=== PATIENT | male | born 2000 | race Hispanic/Latino ===

== ENCOUNTER 2018-12-13 22:07 | Emergency (ER) | payer MEDICAID, OTHER ==
[2018-12-14] MEDS ORDERED: LIDOCAINE HCL 1% 20 ML VIAL ONE (00:09)
== END 2018-12-14 00:57 | disposition home or self-care (01) ==
LOC: EDH 22:07
DX: S01.111A Laceration without foreign body of right eyelid and periocular area, initial encounter (principal); S80.212A Abrasion, left knee, initial encounter; J45.909 Unspecified asthma, uncomplicated; Y04.0XXA Assault by unarmed brawl or fight, initial encounter; Y93.89 Activity, other specified; Y92.89 Other specified places as the place of occurrence of the external cause; Y99.8 Other external cause status
CPT/HCPCS: 12011; 70450; 70486; 72125

== ENCOUNTER 2018-12-22 14:50 | Emergency (ER) | payer OTHER | END 2018-12-22 15:10 | disposition home or self-care (01) | LOC: EDH 14:50 | DX: S01.111D Laceration without foreign body of right eyelid and periocular area, subsequent encounter (principal); J45.909 Unspecified asthma, uncomplicated; X58.XXXD Exposure to other specified factors, subsequent encounter | CPT/HCPCS: 99281 ==

== ENCOUNTER 2021-04-14 11:51 | Emergency (ER) | payer OTHER ==
[~2021-04-14] VITALS: Ht 167.6 cm; Wt 85.3 kg
[2021-04-14 11:52] VITALS: BP 114/70
[2021-04-14 11:53] VITALS: BP 114/70
== END 2021-04-14 13:58 | disposition home or self-care (01) ==
LOC: EDH 11:51
DX: S60.221A Contusion of right hand, initial encounter (principal); M79.89 Other specified soft tissue disorders; W22.01XA Walked into wall, initial encounter; Y93.89 Activity, other specified; Y92.89 Other specified places as the place of occurrence of the external cause; Y99.8 Other external cause status
CPT/HCPCS: 73130

== ENCOUNTER 2021-12-08 12:07 | Emergency (ER) | payer OTHER ==
[~2021-12-08] VITALS: Ht 172.7 cm; Wt 83.9 kg
[2021-12-08] MEDS ORDERED: TETANUS/DIPHTHERIA TOXOID [ADULT] 0.5 ML VIAL IM ONE (12:30)
[2021-12-08] MEDS ORDERED: CEPHALEXIN 500 MG CAPSULE PO ONE (12:30)
[2021-12-08] MEDS ORDERED: HYDROCODONE/ACETAMINOPHEN 10/325 MG TAB PO ONE (12:30)
[2021-12-08 12:45] VITALS: BP 130/92
[2021-12-08] MEDS ORDERED: CEPH500B PO (13:51)
[2021-12-08] MEDS ORDERED: IBUP-2070 PO (13:51)
== END 2021-12-08 13:59 | disposition home or self-care (01) ==
LOC: EDH 12:07
DX: S61.411A Laceration without foreign body of right hand, initial encounter (principal); Z79.1 Long term (current) use of non-steroidal anti-inflammatories (NSAID); X58.XXXA Exposure to other specified factors, initial encounter; Y93.89 Activity, other specified; Y92.89 Other specified places as the place of occurrence of the external cause; Y99.8 Other external cause status
CPT/HCPCS: 12001; 73130; 90471; 90714

== ENCOUNTER 2022-08-31 20:31 | Emergency (ER) | payer OTHER ==
[~2022-08-31] VITALS: Ht 167.6 cm; Wt 87.1 kg
[~2022-08-31 20:31] MED LIST: CEPH500B PO; IBUP-2070 PO
[2022-09-01 02:16] VITALS: BP 131/78
[2022-09-01] MEDS ORDERED: IBUP-2077 PO (02:23)
== END 2022-09-01 02:31 | disposition home or self-care (01) ==
LOC: EDH 20:31
DX: S99.912A Unspecified injury of left ankle, initial encounter (principal); X50.1XXA Overexertion from prolonged static or awkward postures, initial encounter; Y93.89 Activity, other specified; Y92.89 Other specified places as the place of occurrence of the external cause; Y99.8 Other external cause status
CPT/HCPCS: 73600

== ENCOUNTER 2023-05-09 12:17 | Emergency (ER) | payer OTHER ==
[~2023-05-09] VITALS: Ht 167.6 cm; Wt 87.5 kg
[~2023-05-09 12:17] MED LIST changes: +IBUP-2077 PO
[2023-05-09 12:20] VITALS: BP 122/72; PULSE 88; RESP 18
[2023-05-09] MEDS ORDERED: BACITRACIN 1 EACH PACKET TP ONE (14:46)
[2023-05-09] MEDS ORDERED: TETANUS/DIPHTHERIA TOXOID [ADULT] 0.5 ML VIAL IM ONE (14:47)
== END 2023-05-09 15:12 | disposition home or self-care (01) ==
LOC: EDH 12:17
DX: S61.216A Laceration without foreign body of right little finger without damage to nail, initial encounter (principal); Z79.899 Other long term (current) drug therapy; X58.XXXA Exposure to other specified factors, initial encounter; Y93.89 Activity, other specified; Y92.89 Other specified places as the place of occurrence of the external cause; Y99.8 Other external cause status
CPT/HCPCS: 12001; 90714

== ENCOUNTER 2023-05-12 19:14 | Emergency (ER) | payer OTHER | END 2023-05-12 19:31 | disposition left against medical advice (07) | LOC: EDH 19:14 | DX: R68.89 Other general symptoms and signs (principal); Z53.21 Procedure and treatment not carried out due to patient leaving prior to being seen by health care provider ==

== ENCOUNTER 2024-12-10 12:04 | Emergency (ER) | payer SELFPAY ==
[~2024-12-10] VITALS: Ht 177.8 cm; Wt 93.4 kg
[2024-12-10 12:14] VITALS: O2SAT 96
[2024-12-10 12:16] VITALS: BP 140/92; PULSE 85; RESP 16; TEMP 98.2
--- NOTE | 2024-12-10 12:24 | EKG ---
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
[2024-12-10 12:42] LABS: BASOPHILS # (AUTO) 0.04 K/uL (0.00-0.20); BASOPHILS % (AUTO) 0.4 % (0.0-5.0); EOSINOPHILS # (AUTO) 0.27 K/uL (0.00-0.70); HEMATOCRIT 53.1 % (42-54); IMMATURE GRANULOCYTE ABSOLUTE 0.03 K/uL (0-1); LYMPHOCYTES # (AUTO) 1.8 K/uL (1.0-4.8); LYMPHOCYTES % (AUTO) 20.4 % (21.0-51.0); MEAN CORPUSCULAR HEMOGLOBIN 31.6 pg (27.0-33.0); MEAN CORPUSCULAR HGB CONC 33.7 g/dL (32.0-36.0); MEAN CORPUSCULAR VOLUME 93.7 fL (79-99); MONOCYTES # (AUTO) 0.7 K/uL (0.1-1.0); MONOCYTES % (AUTO) 7.9 % (3.0-13.0); NEUTROPHILS # (AUTO) 6.1 K/uL (1.8-7.7); PLATELET COUNT (AUTO) 239 K/uL (130-400); RED BLOOD CELL COUNT(AUTO) 5.67 MIL/uL (4.50-6.20); RED CELL DISTRIBUTION WIDTH 13.3 % (11.0-15.5); WHITE BLOOD COUNT (AUTO) 8.9 K/uL (4.8-10.8)
[2024-12-10 12:50] LABS: POTASSIUM 3.8 mmol/L (3.5-5.1)
[2024-12-10 12:57] LABS: ALBUMIN 3.9 g/dL (3.5-5.0); BILIRUBIN,TOTAL 0.6 mg/dL (0.2-1.0); TOTAL PROTEIN, SERUM 7.7 g/dL (6.0-8.3)
--- NOTE | 2024-12-10 14:00 | NUR ---
PT CALLED OUT X3 WITH NO ANSWER. SEARCHED ER LOBBY, ER LOBBY RESTROOM, PARKING LOT. ER PROVIDER CINDY PEÑA MADE AWARE.
--- NOTE | 2024-12-10 14:18 | ERN ---
General Chief Complaint: Rapid Heart Rate Stated Complaint: CHEST PAIN Time Seen by MD: 12:04 Time Seen by Midlevel: 12:04 Source: patient History of Present Illness Initial Comments Patient is a 24-year-old male presenting to the emergency department for evaluation of chest pain and shortness of breath. Patient reports cocaine use prior to arrival. Denies any other symptoms. Allergies: Coded Allergies: No Known Allergies (Unverified Allergy, Unknown, 04/14/21) Home Meds Active Scripts Ibuprofen (Ibuprofen 800 mg Tab) 800 Mg Tab, 800 MG PO Q8H PRN for PAIN for 10 Days, #30 TAB Prov:MATTHEW EVERETT MD 09/01/22 Ibuprofen (Ibuprofen) 600 Mg Tablet, 600 MG PO TIDMEALS PRN for PAIN, #45 TAB Prov:JO ANN SAINI 12/08/21 Cephalexin Monohydrate (Keflex) 500 Mg Cap, 500 MG PO TID for 7 Days, #21 CAP Prov:JO ANN SAINI 12/08/21 Past Medical History Past Medical History: No Pertinent History Past Surgical History: None Family History Family History: Negative Social History Social History: Lives with family ROS Dictation CONSTITUTIONAL: Negative except for HPI HEAD/FACE: Negative except for HPI EENT: Negative except for HPI RESPIRATORY: Negative except for HPI GASTROINTESTINAL/ABDOMINAL: Negative except for HPI GENITOURINARY: Negative except for HPI MUSCULOSKELETAL: Negative except for HPI INTEGUMENTARY: Negative except for HPI NEUROLOGICAL/PSYCH: Negative except for HPI HEMATOLOGIC/LYMPHATIC: Negative except for HPI All Systems Negative, Except as noted above. 13 point review of systems assessed and all negative except for above. Physical Exam Physical Exam Dictation PHYSICAL EXAM: GENERAL: alert,, awake oriented x 3 HEENT: EOMI, Sclera non icteric, moist mucosa NECK: Supple, no JVD, trachea midline LUNGS: Clear breath sounds bilaterally. No wheezes HEART: Regular rate and rhythm. Normal S1 and S2, without murmurs ABD: Abdomen soft, nontender. Bowel sounds present EXT: No clubbing or cyanosis, NEURO: Alert and oriented to person, follows commands Results Laboratory and Microbiology Lab and Micro Result Laboratory Tests Test 12/10/24 12:28 White Blood Count 8.9 K/uL (4.8-10.8) Red Blood Count 5.67 MIL/uL (4.50-6.20) Hemoglobin 17.9 g/dL (14.0-18.0) Hematocrit 53.1 % (42-54) Mean Corpuscular Volume 93.7 fL (79-99) Mean Corpuscular Hemoglobin 31.6 pg (27.0-33.0) Mean Corpuscular Hemoglobin Concent 33.7 g/dL (32.0-36.0) Red Cell Distribution Width 13.3 % (11.0-15.5) Platelet Count 239 K/uL (130-400) Mean Platelet Volume 10.9 fL (7.5-10.5) H Immature Granulocyte % (Auto) 0.3 % (0-1) Neutrophils (%) (Auto) 68.0 % (40.0-77.0) Lymphocytes (%) (Auto) 20.4 % (21.0-51.0) L Monocytes (%) (Auto) 7.9 % (3.0-13.0) Eosinophils (%) (Auto) 3.0 % (0.0-8.0) Basophils (%) (Auto) 0.4 % (0.0-5.0) Neutrophils # (Auto) 6.1 K/uL (1.8-7.7) Lymphocytes # (Auto) 1.8 K/uL (1.0-4.8) Monocytes # (Auto) 0.7 K/uL (0.1-1.0) Eosinophils # (Auto) 0.27 K/uL (0.00-0.70) Basophils # (Auto) 0.04 K/uL (0.00-0.20) Absolute Immature Granulocyte (auto 0.03 K/uL (0-1) Nucleated Red Blood Cells 0.0 % (0.0-0.19) Sodium Level 139 mmol/L (136-145) Potassium Level 3.8 mmol/L (3.5-5.1) Chloride Level 102 mmol/L (101-111) Carbon Dioxide Level 26 mmol/L (21-32) Blood Urea Nitrogen 6 mg/dL (7-18) L Creatinine 1.0 mg/dL (0.5-1.3) Glomerular Filtration Rate Calc 106 mL/min (>90) Random Glucose 105 mg/dL (70-105) Total Calcium 8.7 mg/dL (8.5-10.1) Total Bilirubin 0.6 mg/dL (0.2-1.0) Aspartate Amino Transf (AST/SGOT) 90 U/L (10-37) H Alanine Aminotransferase (ALT/SGPT) 231 U/L (12-78) H Alkaline Phosphatase 102 U/L (50-136) Total Creatine Kinase 121 U/L (21-232) Troponin I High Sensitivity < 4 ng/L (4-75) L Total Protein 7.7 g/dL (6.0-8.3) Albumin 3.9 g/dL (3.5-5.0) Labs Reviewed?: Yes MDM 24-year-old male presenting with chest pain. Chest pain workup initiated. EKG shows no ST elevations or bundle branch blocks. CBC and chemistries are stable. Troponin is negative. Patient eloped from the emergency department. ED Course Orders Procedure Category Date Status Time 12 Lead Ekg Tracing- EKG 12/10/24 Resulted Technical 12:12 Drug Screen Urine LAB 12/10/24 Logged 12:12 Comprehensive LAB 12/10/24 Complete Metabolic Panel 12:12 Cbc With Differential LAB 12/10/24 Complete 12:12 Troponin I High LAB 12/10/24 Complete Sensitivity 12:14 Creatine Kinase, Total LAB 12/10/24 Complete 12:12 Vital Signs Date Time Temp Pulse Resp B/P (MAP) Pulse Ox O2 Delivery O2 Flow Rate FiO2 12/10/24 12:16 98.2 85 16 140/92 98 Room Air 0 12/10/24 12:14 98.2 85 16 140/92 96 Room Air* 0 21 DX & DISP Disposition: Other(Comment) (Eloped) Departure Impression: Primary Impression: Non-cardiac chest pain Additional Impressions: Cocaine abuse, Eloped from emergency department Condition: Stable Referrals: SELF,REFERRAL (PCP) I have reviewed the case, and I agree with, Diagnosis and Plan I performed the substantive portion of the visit. I have reviewed and personally made and approve the management plan that is documented in the note by myself or the LOLA. I acknowledge for responsibility for the patient's management plan. CARLA SANDOVAL Dec 10, 2024 14:18 NICKI BOWER DO Dec 10, 2024 18:43
== END 2024-12-10 14:00 | disposition left against medical advice (07) ==
LOC: EDH 12:04
DX: R07.89 Other chest pain (principal); F14.10 Cocaine abuse, uncomplicated; Z79.899 Other long term (current) drug therapy
CPT/HCPCS: 36415; 80053; 82550; 84484; 85025; 93005; 99284

== ENCOUNTER 2025-04-28 07:58 | Emergency (ER) | payer SELFPAY ==
[~2025-04-28] VITALS: Ht 165.1 cm; Wt 68.9 kg
[~2025-04-28 07:58] MED LIST changes: +IBUP-1492 PO; -IBUP-2070 PO
[2025-04-28 08:19] LABS: IMMATURE GRANULOCYTE ABSOLUTE 0.05 K/uL (0-1); NUCLEATED RED BLOOD CELLS 0.0 % (0.0-0.19); PLATELET COUNT (AUTO) 233 K/uL (130-400); RED BLOOD CELL COUNT(AUTO) 5.51 MIL/uL (4.50-6.20); RED CELL DISTRIBUTION WIDTH 12.6 % (11.0-15.5); WHITE BLOOD COUNT (AUTO) 12.0 K/uL (4.8-10.8)
[2025-04-28 08:25] LABS: CREATININE 1.1 mg/dL (0.5-1.3); GLOMERULAR FILTR. RATE CALC 95.0 mL/min (>90); GLUCOSE,RANDOM 89.0 mg/dL (70-105); SODIUM SERUM 145.0 mmol/L (136-145); UREA NITROGEN, BLOOD 13.0 mg/dL (7-18)
[2025-04-28] MEDS: 0.9%NACL 1000ML 1,000 ML IV ONE (08:27)
[2025-04-28 08:29] LABS: INR 0.98 (0.85-1.15)
[2025-04-28] MEDS ORDERED: AZIT250T9 PO (09:47)
--- NOTE | 2025-04-28 09:47 | ERN ---
General Chief Complaint: Chest Pain Stated Complaint: CHEST PAIN Time Seen by MD: 08:00 History of Present Illness Initial Comments 24-year-old male who came in for chest pain. Patient otherwise has no concerns. Allergies: Coded Allergies: No Known Allergies (Unverified Allergy, Unknown, 04/14/21) Home Meds Active Scripts Ibuprofen (Ibuprofen 800 mg Tab) 800 Mg Tab, 800 MG PO Q8H PRN for PAIN for 10 Days, #30 TAB Prov:MATTHEW EVERETT MD 09/01/22 Ibuprofen (Ibuprofen) 600 Mg Tablet, 600 MG PO TIDMEALS PRN for PAIN, #45 TAB Prov:JO ANN SAINI 12/08/21 Cephalexin Monohydrate (Keflex) 500 Mg Cap, 500 MG PO TID for 7 Days, #21 CAP Prov:JO ANN SAINI 12/08/21 Past Medical History Past Medical History: No Pertinent History Past Surgical History: None Family History Family History: Negative Social History Social History: Lives with family ROS Dictation Chest pain Physical Exam General Appearance: (+) no apparent distress Orientation: (+) alert, (+) oriented x 3 Neck: (+) normal inspection, (+) supple Respiratory: (+) chest non-tender, (+) lungs clear Heart: (+) regular, (+) no gallop Vascular: (+) no edema, (+) normal peripheral pulse Gastrointestinal: (+) soft, (+) non-tender Extremities: (+) normal range of motion Results Laboratory and Microbiology Lab and Micro Result Laboratory Tests Test 04/28/25 08:06 White Blood Count 12.0 K/uL (4.8-10.8) H Red Blood Count 5.51 MIL/uL (4.50-6.20) Hemoglobin 17.9 g/dL (14.0-18.0) Hematocrit 51.7 % (42-54) Mean Corpuscular Volume 93.8 fL (79-99) Mean Corpuscular Hemoglobin 32.5 pg (27.0-33.0) Mean Corpuscular Hemoglobin Concent 34.6 g/dL (32.0-36.0) Red Cell Distribution Width 12.6 % (11.0-15.5) Platelet Count 233 K/uL (130-400) Mean Platelet Volume 10.7 fL (7.5-10.5) H Immature Granulocyte % (Auto) 0.4 % (0-1) Neutrophils (%) (Auto) 77.8 % (40.0-77.0) H Lymphocytes (%) (Auto) 12.7 % (21.0-51.0) L Monocytes (%) (Auto) 6.4 % (3.0-13.0) Eosinophils (%) (Auto) 2.1 % (0.0-8.0) Basophils (%) (Auto) 0.6 % (0.0-5.0) Neutrophils # (Auto) 9.4 K/uL (1.8-7.7) H Lymphocytes # (Auto) 1.5 K/uL (1.0-4.8) Monocytes # (Auto) 0.8 K/uL (0.1-1.0) Eosinophils # (Auto) 0.25 K/uL (0.00-0.70) Basophils # (Auto) 0.07 K/uL (0.00-0.20) Absolute Immature Granulocyte (auto 0.05 K/uL (0-1) Nucleated Red Blood Cells 0.0 % (0.0-0.19) Prothrombin Time 10.4 SEC (9.6-11.6) Prothromb Time International Ratio 0.98 (0.85-1.15) Activated Partial Thromboplast Time 26.8 SEC (26.3-35.5) Sodium Level 145 mmol/L (136-145) Potassium Level 3.4 mmol/L (3.5-5.1) L Chloride Level 107 mmol/L (101-111) Carbon Dioxide Level 25 mmol/L (21-32) Blood Urea Nitrogen 13 mg/dL (7-18) Creatinine 1.1 mg/dL (0.5-1.3) Glomerular Filtration Rate Calc 95 mL/min (>90) Random Glucose 89 mg/dL (70-105) Total Calcium 8.5 mg/dL (8.5-10.1) Troponin I High Sensitivity < 4 ng/L (4-75) L MDM MDM: Differential diagnosis: Rationale: Tests considered and ordered secondary to shared decision making include: Previous outside records reviewed: Old ER visits. Risk of complication and/or morbidity or mortality of patient management: None Medications-Per medication reconciliation Need for hospitalization: Patient does not meet criteria for hospitalization. Need for emergency major/minor surgery: No There are no social concerns with this patient. Prescription drug management Prescriptions will include symptomatic care Patient's prior external medical records from other ER visits were reviewed by me as indicated. Prior testing and results from previous visits were reviewed. Prior tests were taken into account with medical decision making and resource utilization, independent historian/historians were used to obtain complete medical history. I independently interpreted the test that were performed, results were reviewed by me and considered findings on radiology if ordered. Medical management and examination interpretation discussions were had by me with other qualified healthcare professionals as indicated for the patient's care. ED Course Orders Procedure Category Date Status Time 12 Lead Ekg Tracing- EKG 04/28/25 Logged Technical 08:00 Cbc With Differential LAB 04/28/25 Complete 08:00 Basic Metabolic Panel LAB 04/28/25 Complete 08:00 Pt And Ptt LAB 04/28/25 Complete 08:00 Troponin I High LAB 04/28/25 Complete Sensitivity 08:00 Drug Screen Urine LAB 04/28/25 Logged 08:00 Chest 1vw RAD 04/28/25 Taken 08:00 0.9%Nacl 1000ml (Ns PHA 04/28/25 Complete 1000ml) 08:30 Ceftriaxone 1g Vial PHA 04/28/25 Complete (Rocephine 1g Inj) 09:30 Current Medications Medications (Trade) Dose Ordered Sig/Dimas Route PRN Reason Start Time Stop Time Status Last Admin Dose Admin Ceftriaxone Sodium (ROCEphine 1G INJ) 1 gm ONCE ONCE IM 04/28/25 09:30 04/28/25 09:31 DC 04/28/25 09:42 Sodium Chloride 1,000 ml @ 0 mls/hr ONCE ONCE IV 04/28/25 08:30 04/28/25 08:31 DC 04/28/25 08:27 Vital Signs Date Time Temp Pulse Resp B/P (MAP) Pulse Ox O2 Delivery O2 Flow Rate FiO2 04/28/25 09:00 98.8 90 21 111/61 92 Room Air* 0 21 04/28/25 08:10 98.8 91 27 118/74 92 Room Air* 0 21 04/28/25 07:59 98.1 95 20 125/87 99 Room Air DX & DISP Disposition: Discharge Departure Impression: Primary Impression: Non-cardiac chest pain Additional Impression: Pneumonitis Condition: Stable Scripts Azithromycin (Azithromycin) 250 Mg Tablet 250 MG PO DAILY for 5 Days, #5 TAB Prov: JESSICA DINH MD 04/28/25 Referrals: SELF,REFERRAL (PCP) JESSICA DINH MD Apr 28, 2025 09:47
--- NOTE | 2025-04-28 09:52 | HMCIMG ---
EXAM: CR Chest, 1 View. CLINICAL HISTORY: Shortness of breath COMPARISON: None provided. FINDINGS: LUNGS: There is no mass, infiltrate, or acute pulmonary abnormality. PLEURAL SPACES: No evidence of pleural effusion or pneumothorax. MEDIASTINUM: The cardiomediastinal silhouette is within normal limits. BONES: No aggressive appearing osseous lesion seen. IMPRESSION: No acute cardiopulmonary pathology is evident. /[place]
--- NOTE | 2025-04-28 11:11 | EKG ---
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
--- NOTE | 2025-04-28 11:44 | HMCIMG ---
Exam: NONCONTRAST CT BRAIN REASON: Headache. COMPARISON: None. TECHNIQUE: Images are obtained from vertex to the skull base. The exam was performed without IV contrast. FINDINGS: There is normal appearing brain parenchyma. There are no focal mass lesions. There is is no evidence of intracranial hemorrhage or acute stroke. Ventricles and sulci appear normal. Posterior fossa and brainstem structures are unremarkable. Paranasal sinuses and remaining extracranial soft tissues appear normal as well IMPRESSION: 1. Normal noncontrast CT brain. CT was performed with one or more following dose reduction techniques: automated exposure control, adjustment of the mA and kv according to patient's size, or use of a iterative reconstruction technique.
[2025-04-28 13:00] VITALS: BP 114/64; PULSE 93; RESP 18; TEMP 98.3; O2SAT 97
== END 2025-04-28 12:50 | disposition home or self-care (01) ==
LOC: EDH 07:58
DX: J98.4 Other disorders of lung (principal); R07.89 Other chest pain; Z79.899 Other long term (current) drug therapy
CPT/HCPCS: 99285; 96360; 70450; 71045; 84484 ×2; 80048; 85025; 85610; 85730; 36415; 93005; 96372; J7030; J0696